=== PATIENT | female | born 1970 | race Hispanic/Latino ===

== ENCOUNTER → 2024-01-30 | Outpatient (REF) | payer BC ==
[~2024-01-30] MED LIST: ALENDRONATE SOD70 MG PO; FEROSUL325 MG PO; FOLIC ACID0.4 MG PO; GLUCOSAMIN-CHO1 EACH; LEVOTHYROXINE112 MCG PO; LISINOPRIL10 MG PO; METHOTREXATE2.5 MG PO; OMEPRAZOLE40 MG PO; PREDNISOLO15 MG/5 ML PO; SULFASALAZINE500 MG PO; TROSPIUM CHLORI20 MG PO; TUMERIC
== END ==
LOC: DX 07:55
PROVIDERS: ATTEND Surgery
DX: K44.9 Diaphragmatic hernia without obstruction or gangrene (principal); K21.9 Gastro-esophageal reflux disease without esophagitis
CPT/HCPCS: 74246

== ENCOUNTER 2024-04-16 08:02 | Inpatient (IN) | payer BC ==
[2024-04-11 08:57] LABS: BASOPHILS # (AUTO) 0.1 (0.0-0.1); BASOPHILS % 0.9 % (0.0-1.0); EOSINOPHILS # (AUTO) 0.4 (0.0-0.4); EOSINOPHILS % 5.7 % (0.0-6.0); HEMATOCRIT 39.3 % (34.2-44.1); HEMOGLOBIN 12.3 g/dL (12.0-16.0); LYMPHOCYTES # (AUTO) 2.6 (1.0-3.2); LYMPHOCYTES % 34.2 % (18.0-39.1); MEAN CORPUSCULAR HEMOGLOBIN 28.9 pg (28-32); MEAN CORPUSCULAR HGB CONC 31.3 g/dL (31-35); MEAN CORPUSCULAR VOLUME 92.5 fL (81-99); MONOCYTES # (AUTO) 0.8 (0.2-0.8); MONOCYTES % 10.2 % (4.4-11.3); NEUTROPHILS # (AUTO) 3.7 (2.1-6.9); NEUTROPHILS % 48.7 % (38.7-80.0); PLATELET COUNT 255 x10e3/uL (140-360); RED BLOOD COUNT 4.25 x10e6/uL (3.6-5.1); RED CELL DISTRIBUTION WIDTH 14.9 % (11.7-14.4); WHITE BLOOD COUNT 7.54 x10e3/uL (4.8-10.8)
[2024-04-11 09:19] LABS: ALBUMIN 3.8 g/dL (3.5-5.0); ALBUMIN/GLOBULIN RATIO 1.2 (0.8-2.0); ANION GAP 13.4 mmol/L (8-16); BILIRUBIN,TOTAL 0.4 mg/dL (0.2-1.2); CALCIUM 8.8 mg/dL (8.4-10.2); CREATININE, SERUM 0.73 mg/dL (0.57-1.11); POTASSIUM 4.4 mmol/L (3.5-5.1); TOTAL PROTEIN 7.1 g/dL (6.5-8.1)
[~2024-04-16] VITALS: Ht 167.6 cm; Wt 122.5 kg
[~2024-04-16 08:02] MED LIST changes: +BIOTIN 800 MCG1 EACH PO; +CIMZIA400 MG INJ; +COLLAGEN 15001 EACH PO; +VIT D3 PO
[2024-04-16] MEDS ORDERED: BUPIVACAINE 0.25% 30ML SDV ONE ×2 (10:40→17:50)
[2024-04-16] MEDS ORDERED: LIDOCAINE 1% W/EPINEPHRINE 20 ML VIAL ONE (10:40)
[2024-04-16] MEDS ORDERED: ONDANSETRON HCL INJ 2MG/ML 2ML 2 MG/ML VIAL IV PRN (14:30)
[2024-04-16] MEDS ORDERED: ACETAMINOPHEN 1000 MG/100 ML IV PRN (14:30)
[2024-04-16] MEDS ORDERED: HYDROMORPHONE 1MG/1ML INJ IV PRN (14:30)
[2024-04-16] MEDS: SODIUM CHLORIDE 0.9% 250ML IRRIG IR SCH (15:30)
[2024-04-16 16:32] VITALS: BP 140/68; PULSE 80; RESP 18; TEMP 97.7; O2SAT 100
[2024-04-16] MEDS ORDERED: MIDAZOLAM HCL 2 MG/2 ML VIAL ONE (16:40)
[2024-04-16] MEDS ORDERED: FENTANYL CITRATE/PF 100MCG/2 ML INJ ONE (16:40)
[2024-04-16 16:58] LABS: BASOPHILS # (AUTO) 0.1 (0.0-0.1); BASOPHILS % 0.3 % (0.0-1.0); EOSINOPHILS % 0.1 % (0.0-6.0); HEMATOCRIT 41.6 % (34.2-44.1); HEMOGLOBIN 12.5 g/dL (12.0-16.0); LYMPHOCYTES # (AUTO) 1.4 (1.0-3.2); LYMPHOCYTES % 7.4 % (18.0-39.1); MEAN CORPUSCULAR HEMOGLOBIN 29.2 pg (28-32); MEAN CORPUSCULAR VOLUME 97.2 fL (81-99); MONOCYTES # (AUTO) 1.4 (0.2-0.8); MONOCYTES % 7.1 % (4.4-11.3); NEUTROPHILS # (AUTO) 16.5 (2.1-6.9); NEUTROPHILS % 84.3 % (38.7-80.0); PLATELET COUNT 230 x10e3/uL (140-360); RED BLOOD COUNT 4.28 x10e6/uL (3.6-5.1); RED CELL DISTRIBUTION WIDTH 15.1 % (11.7-14.4); WHITE BLOOD COUNT 19.51 x10e3/uL (4.8-10.8)
[2024-04-16 17:19] LABS: ALBUMIN 3.7 g/dL (3.5-5.0); ALBUMIN/GLOBULIN RATIO 1.2 (0.8-2.0); ANION GAP 16.5 mmol/L (8-16); BILIRUBIN,TOTAL 0.3 mg/dL (0.2-1.2); CALCIUM 8.9 mg/dL (8.4-10.2); CREATININE, SERUM 0.81 mg/dL (0.57-1.11); POTASSIUM 3.5 mmol/L (3.5-5.1); TOTAL PROTEIN 6.8 g/dL (6.5-8.1)
[2024-04-16] MEDS ORDERED: LIDOCAINE HCL 2% LOCAL INJ 5 ML SDV VIAL INJ ONE (17:41)
[2024-04-16] MEDS ORDERED: ONDANSETRON HCL INJ 2MG/ML 2ML 2 MG/ML VIAL ONE (17:41)
[2024-04-16] MEDS ORDERED: PROPOFOL IV EMULSION 10 MG/ML 20 ML VIAL ONE (17:41)
[2024-04-16] MEDS ORDERED: SEVOFLURANE INHAL SOLN 250 ML PEN BTL ONE (17:41)
[2024-04-16] MEDS ORDERED: METOCLOPRAMIDE HCL 10 MG/2ML VIAL ONE (17:41)
[2024-04-16] MEDS ORDERED: SUCCINYLCHOLINE CHLORIDE 20 MG/ML 10ML VIAL ONE (17:41)
[2024-04-16] MEDS ORDERED: NEOSTIGMINE 1 MG/ML 10ML VIAL ONE (17:41)
[2024-04-16] MEDS ORDERED: GLYCOPYRROLATE INJ 0.2 MG/ML VIAL ONE (17:41)
[2024-04-16] MEDS ORDERED: ROCURONIUM BROMIDE 10 MG/ML 5ML VIAL IV ONE (17:41)
[2024-04-16] MEDS ORDERED: LIDOCAINE 2%/ EPINEPHRINE 20ML MDV ONE (17:50)
[2024-04-16] MEDS ORDERED: EPINEPHRINE HCL 1:1000 1ML 1 MG/ML AMP ONE (17:50)
[2024-04-16] MEDS: SODIUM CHLORIDE 0.9% 1000ML 1,000 ML IV SCH (18:08)
[2024-04-16 20:00] VITALS: BP 140/77; PULSE 87; RESP 20; TEMP 99.5; O2SAT 98
[2024-04-16] MEDS: LACTATED RINGER'S 1,000 ML ONE (20:21)
[2024-04-17] VITALS (10 sets, daily range): BP systolic 112–154; BP diastolic 71–93; PULSE 75–100; RESP 16–20; TEMP 98.1–100.2; O2SAT 94–100
[2024-04-17 05:31] LABS: BASOPHILS % 0.3 % (0.0-1.0); EOSINOPHILS % 0.3 % (0.0-6.0); HEMATOCRIT 36.8 % (34.2-44.1); HEMOGLOBIN 11.4 g/dL (12.0-16.0); LYMPHOCYTES # (AUTO) 1.9 (1.0-3.2); LYMPHOCYTES % 16.1 % (18.0-39.1); MEAN CORPUSCULAR HEMOGLOBIN 28.9 pg (28-32); MEAN CORPUSCULAR VOLUME 93.2 fL (81-99); MONOCYTES # (AUTO) 1.2 (0.2-0.8); MONOCYTES % 10.1 % (4.4-11.3); NEUTROPHILS # (AUTO) 8.5 (2.1-6.9); NEUTROPHILS % 72.8 % (38.7-80.0); PLATELET COUNT 251 x10e3/uL (140-360); RED BLOOD COUNT 3.95 x10e6/uL (3.6-5.1); RED CELL DISTRIBUTION WIDTH 14.7 % (11.7-14.4); WHITE BLOOD COUNT 11.61 x10e3/uL (4.8-10.8)
[2024-04-17 05:53] LABS: ANION GAP 12.6 mmol/L (8-16); CALCIUM 8.6 mg/dL (8.4-10.2); CREATININE, SERUM 0.66 mg/dL (0.57-1.11); POTASSIUM 3.6 mmol/L (3.5-5.1)
[2024-04-18 00:27] VITALS: BP 141/73; PULSE 99; RESP 17; TEMP 100.1; O2SAT 100
[2024-04-18 04:41] VITALS: BP 134/80; PULSE 94; RESP 18; TEMP 98.7; O2SAT 99
[2024-04-18 06:15] LABS: BASOPHILS # (AUTO) 0.1 (0.0-0.1); BASOPHILS % 0.6 % (0.0-1.0); EOSINOPHILS # (AUTO) 0.3 (0.0-0.4); EOSINOPHILS % 2.1 % (0.0-6.0); HEMATOCRIT 36.5 % (34.2-44.1); HEMOGLOBIN 11.2 g/dL (12.0-16.0); LYMPHOCYTES # (AUTO) 1.8 (1.0-3.2); LYMPHOCYTES % 15.1 % (18.0-39.1); MEAN CORPUSCULAR HGB CONC 30.7 g/dL (31-35); MEAN CORPUSCULAR VOLUME 94.6 fL (81-99); MONOCYTES # (AUTO) 1.5 (0.2-0.8); MONOCYTES % 12.7 % (4.4-11.3); NEUTROPHILS # (AUTO) 8.2 (2.1-6.9); NEUTROPHILS % 68.8 % (38.7-80.0); PLATELET COUNT 227 x10e3/uL (140-360); RED BLOOD COUNT 3.86 x10e6/uL (3.6-5.1); WHITE BLOOD COUNT 11.85 x10e3/uL (4.8-10.8)
[2024-04-18 06:41] LABS: ANION GAP 13.6 mmol/L (8-16); CALCIUM 8.3 mg/dL (8.4-10.2); CREATININE, SERUM 0.62 mg/dL (0.57-1.11); POTASSIUM 3.6 mmol/L (3.5-5.1)
[2024-04-18 08:00] VITALS: BP 134/80; PULSE 94; RESP 18; TEMP 98.7; O2SAT 99
[2024-04-18 08:35] VITALS: BP 155/83; PULSE 87; RESP 18; TEMP 98.5; O2SAT 98
[2024-04-18 12:58] VITALS: BP 129/95; PULSE 82; RESP 17; TEMP 98.3; O2SAT 98
== END 2024-04-18 13:35 | disposition home or self-care (01) | DRG 327 ==
LOC: OR 08:02 → PACU V 14:28 → MED/SURG3 15:45
PROVIDERS: ADMIT Surgery; ATTEND Surgery
PROC: 0BQT4ZZ Repair Diaphragm, Percutaneous Endoscopic Approach (ICD-10-PCS; 2024-04-16)
PROC: 0DV44ZZ Restriction of Esophagogastric Junction, Percutaneous Endoscopic Approach (ICD-10-PCS; principal; 2024-04-16 11:13)
DX: K44.9 Diaphragmatic hernia without obstruction or gangrene (principal); E66.9 Obesity, unspecified; Z68.41 Body mass index [BMI] 40.0-44.9, adult; K21.9 Gastro-esophageal reflux disease without esophagitis; I10 Essential (primary) hypertension; M06.9 Rheumatoid arthritis, unspecified; Z79.890 Hormone replacement therapy
CPT/HCPCS: 36415; 80048; 80053; 85025; 93005; C1766; J0171; J0330; J0690; J2001; J2250; J2405; J2470; J2710; J2765; J7030